=== PATIENT | female | born 1950 | race Hispanic/Latino ===

== ENCOUNTER 2022-03-04 11:45 | Outpatient (CLI) | payer OTHER | END 2022-03-04 11:46 | disposition home or self-care (01) | LOC: PET 11:45 | PROVIDERS: ATTEND Internal Medicine Hematology & Oncology | DX: C88.4 Extranodal marginal zone B-cell lymphoma of mucosa-associated lymphoid tissue [MALT-lymphoma] (principal) | CPT/HCPCS: 78815; A9552 ==

== ENCOUNTER 2022-03-07 08:08 | Outpatient (CLI) | payer OTHER | END 2022-03-07 08:09 | disposition home or self-care (01) | LOC: SCSMRI 08:08 | PROVIDERS: ATTEND Internal Medicine Hematology & Oncology | DX: C88.4 Extranodal marginal zone B-cell lymphoma of mucosa-associated lymphoid tissue [MALT-lymphoma] (principal); M89.8X6 Other specified disorders of bone, lower leg; C79.51 Secondary malignant neoplasm of bone ==

== ENCOUNTER 2022-06-24 08:45 | Outpatient (CLI) | payer OTHER | END 2022-06-24 08:46 | disposition home or self-care (01) | LOC: PET 08:45 | PROVIDERS: ATTEND Internal Medicine Hematology & Oncology | DX: C88.4 Extranodal marginal zone B-cell lymphoma of mucosa-associated lymphoid tissue [MALT-lymphoma] (principal) | CPT/HCPCS: 78815; A9552 ==

== ENCOUNTER 2022-12-25 11:45 | Outpatient (CLI) | payer OTHER | END 2022-12-25 11:46 | disposition home or self-care (01) | LOC: PET 11:45 | PROVIDERS: ATTEND Internal Medicine Hematology & Oncology | DX: C88.4 Extranodal marginal zone B-cell lymphoma of mucosa-associated lymphoid tissue [MALT-lymphoma] (principal) | CPT/HCPCS: 78815; A9552 ==

== ENCOUNTER 2023-05-06 11:17 | Outpatient (CLI) | payer OTHER | END 2023-05-06 11:18 | disposition home or self-care (01) | LOC: RAD 11:17 | PROVIDERS: ATTEND Family Medicine | DX: M25.512 Pain in left shoulder (principal) ==

== ENCOUNTER 2025-07-20 10:15 | Outpatient (CLI) | payer OTHER | END 2025-07-20 10:16 | disposition home or self-care (01) | LOC: PET 10:15 | PROVIDERS: ATTEND Internal Medicine Hematology & Oncology | DX: C88.40 Extranodal marginal zone B-cell lymphoma of mucosa-associated lymphoid tissue [MALT-lymphoma] not having achieved remission (principal); R16.1 Splenomegaly, not elsewhere classified | CPT/HCPCS: 78815; A9552 ==